=== PATIENT | female | born 1990 | race Caucasian/White ===

== ENCOUNTER 2021-09-14 10:04 | Outpatient (CLI) | payer OTHER, SELFPAY ==
--- NOTE | 2021-09-14 10:15 | CRLHL7_ITS ---
For Patients: As a result of the Cures Act, medical imaging exams and procedure reports are released immediately into your electronic medical record. You may view this report before your referring provider. If you have questions, please contact your health care provider. RIGHT BREAST ULTRASOUND, 09/14/2021 INDICATION: Callback from screening mammogram for RIGHT retroareolar focal asymmetry. TECHNIQUE: Targeted RIGHT breast ultrasound. COMPARISON: Mammograms dating back to 2018 and MRI 09/09/2019. FINDINGS: The retroareolar and 6 o`clock RIGHT breast were evaluated with ultrasound. Scanning was performed by both the technologist and myself. No suspicious abnormality is identified. Normal breast tissue is identified. IMPRESSION: Negative targeted RIGHT breast ultrasound. RECOMMENDATION: Resuming annual screening mammograms and MRIs as clinically indicated in this high-risk patient. BI-RADS Category 1: Negative A lay language report of this examination will be provided to the patient. Dictated by: Leslie Davila MD @09/14/2021 11:17:57 AM jj/Dictated by: Leslie Davila MD @ 09/14/2021 11:18:00 AM (Electronically Signed)
== END 2021-09-14 10:05 | disposition home or self-care (01) ==
LOC: MAMMO 10:05
PROVIDERS: PCP Family Medicine; Visit Provider Family Medicine
DX: R92.8 Other abnormal and inconclusive findings on diagnostic imaging of breast (principal); Z15.01 Genetic susceptibility to malignant neoplasm of breast
CPT/HCPCS: 76642

== ENCOUNTER 2022-02-01 14:04 | Outpatient (CLI) | payer OTHER, SELFPAY ==
--- NOTE | 2022-02-01 14:30 | CRLHL7_ITS ---
For Patients: As a result of the Century Cures Act, medical imaging exams and procedure reports are released immediately into your electronic medical record. You may view this report before your referring provider. If you have questions, please contact your health care provider. BILATERAL BREAST MRI WITHOUT AND WITH GADOLINIUM 02/01/2022 CLINICAL HISTORY: 29-year-old woman with family history of breast cancer in her mother at age 62 and sister age 34. 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 No current breast concerns. INDICATION FOR BREAST MRI: Screening breast MRI in this high-risk woman. COMPARISON STUDIES: Mammogram 03/28/2021, 09/05/2021. Ultrasound 03/28/2021. MRI 09/09/2019. CONTRAST: 20 cc Dotarem. TECHNIQUE: The patient was positioned prone using a breast coil. Multiple imaging sequences were obtained using 1-1.5 mm thick slices with no gap. The image sequences include T2-weighted STIR in the axial plane, T1-weighted nonfat-saturated gradient echo in the axial plane, pre- and post-contrast T1-weighted FLASH 3D with fat suppression in the axial plane, and T1-weighted FLASH high-resolution 3D with fat suppression in the sagittal plane. Image post-processing was performed on a [employer] workstation. Complex 3D rendering including maximum intensity projections (MIPS) and volumetric renderings were obtained to optimize visualization of the extent of pathology and relationship to the nipple, skin, and chest wall. This aids in determining feasibility of breast conservation surgery. Subtraction, multiplanar reconstruction, mean curve determination, and angiogenesis mapping were also performed. The study was technically adequate. FINDINGS: Amount of Fibroglandular Tissue: Scattered fibroglandular tissue. Breast Background Enhancement: Minimal. RIGHT Breast: Segmental nodular enhancement lateral RIGHT breast central depth measuring approximately 3.5 cm in AP dimension. LEFT Breast: No suspicious enhancement for malignancy LEFT breast. Lymph Nodes: Axillary lymph nodes are normal in size and morphology. IMPRESSIONS AND RECOMMENDATIONS: Segmental nodular enhancement lateral RIGHT breast central depth. MRI-guided biopsy is recommended. BI-RADS: BI-RADS Category 4: Suspicious Michelle España M.D. Body/Breast Radiologist [email or web address] Transcribed: 11:19 a.mEnrique DW/Dictated by: Michelle España MD @ 02/04/2022 11:08:00 AM (Electronically Signed)
== END 2022-02-01 14:05 | disposition home or self-care (01) ==
PROVIDERS: PCP Family Medicine; Visit Provider Family Medicine
DX: Z15.01 Genetic susceptibility to malignant neoplasm of breast (principal); D24.2 Benign neoplasm of left breast; Z15.09 Genetic susceptibility to other malignant neoplasm
CPT/HCPCS: 77049; A9575

== ENCOUNTER 2022-07-11 13:52 | Outpatient (CLI) | payer OTHER, SELFPAY ==
--- NOTE | 2022-07-11 14:00 | CRLHL7_ITS ---
For Patients: As a result of the Century Cures Act, medical imaging exams and procedure reports are released immediately into your electronic medical record. You may view this report before your referring provider. If you have questions, please contact your health care provider. BILATERAL SCREENING MAMMOGRAM WITH COMPUTER-AIDED DETECTION AND TOMOSYNTHESIS INDICATION: 32-year-old asymptomatic female. Screening evaluation. TECHNIQUE: CC and MLO views were obtained. This digital study was evaluated is computer-aided detection. Digital breast tomosynthesis utilized for interpretation. COMPARISON: September 10, 2021, December 31, 2019. FINDINGS: Breast composition: There are scattered areas of fibroglandular density Two biopsy clips are identified on the LEFT, unchanged. RIGHT retroareolar density unchanged. This was evaluated with ultrasound September 14, 2021. No change. IMPRESSION: Stable mammograms. Nothing for malignancy. Annual mammography recommended. BI-RADS Category 2: Benign A lay language report of this examination will be provided to the patient. Dictated by: Gurinder Carpenter MD @07/12/2022 8:39:07 AM/ghanshyam AKUA/Dictated by: Gurinder Carpenter MD @ 07/12/2022 8:39:00 AM (Electronically Signed)
== END 2022-07-11 13:53 | disposition home or self-care (01) ==
PROVIDERS: PCP Family Medicine; Visit Provider Surgery
DX: Z12.31 Encounter for screening mammogram for malignant neoplasm of breast (principal)
CPT/HCPCS: 77063; 77067

== ENCOUNTER 2023-02-13 12:49 | Outpatient (CLI) | payer OTHER, SELFPAY ==
--- NOTE | 2023-02-13 13:00 | CRLHL7_ITS ---
For Patients: As a result of the Century Cures Act, medical imaging exams and procedure reports are released immediately into your electronic medical record. You may view this report before your referring provider. If you have questions, please contact your health care provider. BILATERAL BREAST MRI WITHOUT AND WITH GADOLINIUM, 02/13/2023 CLINICAL HISTORY: Personal history of BRCA 1 gene mutation, positive. Strong family history of breast cancer. INDICATION FOR BREAST MRI: Screening breast MRI in this high-risk woman. COMPARISON STUDIES: BILATERAL mammogram 07/11/2022. Breast MRI 02/01/2022. CONTRAST: 20 cc Dotarem. TECHNIQUE: The patient was positioned prone using a breast coil. Multiple imaging sequences were obtained using 1-1.5 mm thick slices with no gap. The image sequences include T2-weighted STIR in the axial plane, T1-weighted nonfat-saturated gradient echo in the axial plane, pre- and post-contrast T1-weighted FLASH 3D with fat suppression in the axial plane, and T1-weighted FLASH high-resolution 3D with fat suppression in the sagittal plane. Image post-processing was performed on a [employer] workstation. Complex 3D rendering including maximum intensity projections (MIPS) and volumetric renderings were obtained to optimize visualization of the extent of pathology and relationship to the nipple, skin, and chest wall. This aids in determining feasibility of breast conservation surgery. Subtraction, multiplanar reconstruction, mean curve determination, and angiogenesis mapping were also performed. The study was technically adequate. FINDINGS: Amount of Fibroglandular Tissue: Scattered fibroglandular tissue. Breast Background Enhancement: Moderate. RIGHT Breast: There is a marker clip in the lateral RIGHT breast from prior biopsy with a benign result. No suspicious mass or non-mass enhancement. LEFT Breast: Two marker clips are identified in the LEFT breast from past biopsies with a benign result. No suspicious mass or non-mass enhancement. Lymph Nodes: No enlarged or morphologically abnormal lymph nodes. IMPRESSIONS AND RECOMMENDATIONS: Negative for signs of malignancy. Follow-up with annual screening mammography. If continuing with breast MRI, this is best offset from the mammogram by six months. BI-RADS Category 2: Benign Namita Montoya M.D. Body/Breast Radiologist [email or web address] PRAVIN/alcon rondon/Dictated by: Namita Montoya MD @ 02/17/2023 5:20:00 PM (Electronically Signed)
== END 2023-02-13 12:50 | disposition home or self-care (01) ==
LOC: MRI 12:49
PROVIDERS: PCP Family Medicine; Visit Provider Surgery
DX: Z12.39 Encounter for other screening for malignant neoplasm of breast (principal); Z15.01 Genetic susceptibility to malignant neoplasm of breast; Z15.02 Genetic susceptibility to malignant neoplasm of ovary; Z91.89 Other specified personal risk factors, not elsewhere classified; Z80.3 Family history of malignant neoplasm of breast
CPT/HCPCS: 77049; A9575

== ENCOUNTER 2023-09-28 02:03 | Emergency (ER) | payer BC, SELFPAY ==
--- NOTE | 2023-09-28 | CT_ITS ---
Patient: KEVIN GLEN WHITE Facility:?[facility] Patient ID:?[id number] Site Patient ID:?[id number]. Site :?[id number] Study:?CT-Abdomen/Pelvis W/ISOVUE 370 66CC-09/28/2023 3:37:10 AM Ordering Physician:CAROLINA Final Report: Indication: Abdominal pain Technique: CT through the abdomen and pelvis following 66 mL Isovue 370 IV contrast Comparison: None Findings: Lower chest: No acute abnormality appreciated. Hepatobiliary: No significant parenchymal abnormality is appreciated. Cholecystectomy. Spleen: Unremarkable. Pancreas: No acute abnormality appreciated. Adrenal glands: No acute abnormality appreciated. Kidneys: Contrast excretion into collecting system precludes reliable assessment nonobstructing calculi. No acute parenchymal abnormality appreciated. No hydronephrosis. Bowel: No obstruction. Mild wall thickening and adjacent hyperemia along the hepatic flexure and proximal transverse colon. The appendix is visualized and appears unremarkable. Vascular: No acute abnormality appreciated. Lymph nodes: No gross lymphadenopathy. Peritoneum: No free air. No free fluid. : No acute abnormality appreciated. Soft tissues: No acute abnormality appreciated. Bones: No acute fracture. No lytic or blastic lesion. Impression: Question mild colitis slowly hepatic flexure and proximal transverse colon, no other acute appreciated for patient`s reported symptoms. Please note that all CT scans at this facility use dose modulation, iterative reconstruction, and/or weight-based dosing when appropriate to reduce radiation dose to as low as reasonably achievable. Dictated by Aung Meza MD @ 09/28/2023 3:44:54 AM Signed by:?Aung Meza MD @09/28/2023 3:44:54 AM (Electronic Signature)
[2023-09-28 02:20] VITALS: BP 90/46; PULSE 114; RESP 20; TEMP 36.5; O2SAT 98; BMI 26.6
[2023-09-28] MEDS: ONDANSETRON 2 MG/ML inj 4 MG IVP (02:40)
[2023-09-28] MEDS: HYDROmorphone 0.5 mg/0.5 ml inj IVP (02:40)
[2023-09-28] MEDS: KETOROLAC 30 MG/ML inj IVP (02:40)
--- NOTE | 2023-09-28 05:34 | ED_ITS ---
HPI - Abdominal Pain General Chief Complaint: Abdominal Pain Stated Complaint: Right side abdominal pain, diarrhea/vomiting History of Present Illness HPI narrative: Patient is a 33-year-old woman who presents with severe in a 10 abdominal pain in the right upper quadrant of 4 hours duration. She has had diarrhea as well as vomiting but no blood in her vomit or diarrhea. She has had a previous cholecystectomy. She has had no other significant symptoms no preceding symptoms and states the pain is severe. She has had no dysuria fevers chills night sweats cough for shortness of breath. Related Data Home Medications ?Medication ?Instructions ?Recorded ?Confirmed No Known Home Medications 09/28/23 09/28/23 Allergies Allergy/AdvReac Type Severity Reaction Status Date / Time oxycodone Allergy nausea & Verified 09/28/23 04:51 vomiting No Known Allergies AdvReac Unknown Verified 09/28/23 04:51 Review of Systems Status of ROS Reports: 10 or more systems reviewed and unremarkable except as noted in History and below [facility] Medical History Nausea and vomiting ?R11.2 - Nausea with vomiting, unspecified (ICD-10) Epigastric pain ?R10.13 - Epigastric pain (ICD-10) Encounter for sterilization ?Z30.2 - Encounter for sterilization (ICD-10) History of cholelithiasis ?Z87.19 - Personal history of other diseases of the digestive system (ICD-10) ASCUS with positive high risk HPV BRCA1-associated protein-1 tumor predisposition syndrome ?Z15.01 - Genetic susceptibility to malignant neoplasm of breast (ICD-10) ?Z15.02 - Genetic susceptibility to malignant neoplasm of ovary (ICD-10) ?Z15.09 - Genetic susceptibility to other malignant neoplasm (ICD-10) Surgical History History of breast biopsy (09/16/19) ?Z98.890 - Other specified postprocedural states (ICD-10) History of (06/03/18) ?Z98.891 - History of uterine scar from previous surgery (ICD-10) H/O: (11/29/16) ?Z98.891 - History of uterine scar from previous surgery (ICD-10) S/P laparoscopic cholecystectomy (09/01/18) ?Z90.49 - Acquired absence of other specified parts of digestive tract (ICD- 10) H/O bilateral salpingectomy ?Z90.79 - Acquired absence of other genital organ(s) (ICD-10) S/P (12/12/20) ?Z98.891 - History of uterine scar from previous surgery (ICD-10) Family History Aunt Breast cancer Sister Breast cancer Paternal Grandfather Colon cancer Daughter Cystic fibrosis Daughter Cystic fibrosis Social History Narrative: Cis-gender, heterosexual woman Relationship status: . 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 She drinks alcohol occasionally. 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 Smoking Status: Never smoker Non-prescribed substance use: denies use Exam Narrative: Exam Narrative: EXAM GENERAL: Patient appears very uncomfortable E rocking back and forth. EYES: No scleral icterus. LYMPH: No supraclavicular or cervical lymphadenopathy. SKIN: Visible skin seen during exam normal or with benign process only. EXT: No dependent lower extremity pedal edema. HEART: Regular rate and rhythm with no murmurs, rubs, or gallops. LUNGS: Clear to auscultation bilaterally with no crackles or wheezes. ABD: Soft, non tender, non distended. PSYCH: Good eye contact, speech is not pressured. Const: Vital Signs, click to edit/add: Vital Signs - 24 hr 09/28/23 02:20 Temperature 97.7 F Pulse Rate [Pulse Oximeter] 114 H Respiratory Rate 20 Blood Pressure [Ri ght Upper Arm] 90/46 L Pulse Oximetry 98 Course Vital Signs Vital signs: Initial Vital Signs Temperature 97.7 F 09/28/23 02:20 Temperature Source Temporal Artery Scan 09/28/23 02:20 Pulse Rate 114 H 09/28/23 02:20 Pulse Rhythm Regular 09/28/23 02:20 Respiratory Rate 20 09/28/23 02:20 Blood Pressure 90/46 L 09/28/23 02:20 Blood Pressure Mean 60 L 09/28/23 02:20 Blood Pressure Position Sitting 09/28/23 02:20 Pulse Oximetry 98 09/28/23 02:20 Vital Signs Temperature 97.7 F 09/28/23 02:20 Pulse Rate 114 H 09/28/23 02:20 Respiratory Rate 20 09/28/23 02:20 Blood Pressure 90/46 L 09/28/23 02:20 Pulse Oximetry 98 09/28/23 02:20 Temperature 97.7 F 09/28/23 02:20 Pulse Rate 114 H 09/28/23 02:20 Respiratory Rate 20 09/28/23 02:20 Blood Pressure 90/46 L 09/28/23 02:20 Pulse Oximetry 98 09/28/23 02:20 MDM - Abdominal Pain MDM Narrative Medical decision making narrative: Patient is a 33-year-old woman who presents with severe abdominal pain. CT of the abdomen pelvis shows mild colitis. Her symptoms resolved with normal saline Toradol Dilaudid and Zofran. Labs are reassuring. At this time she feels 100% better and is discharged home to rotate Tylenol Motrin plenty of rest plenty fluids I did prescribe Zofran a p.r.n. basis. Discharge Plan Discharge Clinical Impression: Colitis Patient Disposition: Home, Self-Care Condition: Stable Instructions: Colitis (ED) Activity Level: No Restrictions Discharge Diet: Regular Prescriptions: No Action No Known Home Medications Follow Up/Referrals: Bridgette Hastings DO [Primary Care Provider] - Stand Alone Forms: [employer] Info Instructions
[2023-09-28 05:44] LABS: Hematocrit 41.7 % (33.0-51.0); Hemoglobin* 13.7 gm/dL (12.0-16.0); Mean Corpuscular HGB Conc 33 gm/dL (32-36); Mean Corpuscular Hemoglobin 30 pg (26-34); Mean Corpuscular Volume 87 fL (80-100); Platelet Count* 230 K/uL (140-440); Red Blood Count 4.81 m/uL (4.00-5.20); White Blood Count* 9.29 K/uL (4.50-11.00)
[2023-09-28 05:45] LABS: Basophils Percent Auto 0.1 % (0.0-3.0); Eosinophils Percent Auto 0.1 % (0.0-7.0); Immature Granulocytes Pct Auto 0.9 %; Monocytes Percent Auto 7.2 % (0.0-11.0); Neutrophils Percent Auto 87.7 % (42.0-72.0); Potassium* 3.6 mmol/L (3.6-5.1); RDW Coefficient of Variation % 12.7 % (11.5-15.5); Slide Review Reflex No; Sodium* 139 mmol/L (135-149)
[2023-09-28 05:46] LABS: Alanine Aminotransferase* 16 U/L (4-35); Albumin* 5.1 g/dL (3.3-5.0); Alkaline Phosphatase* 71 U/L (40-150); Anion Gap 13 mEq/L (7-15); Aspartate Amino Transferase* 26 U/L (12-35); Bilirubin Total* 0.8 mg/dL (0.1-1.5); Blood Urea Nitrogen* 13 mg/dL (5-24); Calcium* 9.5 mg/dL (8.4-10.6); Carbon Dioxide* 21 mmol/L (20-32); Chloride* 105 mmol/L (96-114); Creatinine* 0.7 mg/dL (0.5-1.5); Est. Creatinine Clearance* 96.86; Estimated Glomerular Filt Rate 116 ml/min; Glucose* 137 mg/dL (60-115)
[2023-09-28 05:47] LABS: Amylase* 78 U/L (18-89)
== END 2023-09-28 05:00 | disposition home or self-care (01) ==
PROVIDERS: Emergency Provider Internal Medicine; PCP Family Medicine
DX: K52.9 Noninfective gastroenteritis and colitis, unspecified (principal)
CPT/HCPCS: 36415; 74177; 80053; 81003; 82150; 85025; 96374; 96375; 99283; 99284; 99285; J1170; J1885; J2405; Q9967

== ENCOUNTER 2024-01-30 15:22 | Outpatient (CLI) | payer BC, SELFPAY ==
--- NOTE | 2024-01-30 15:30 | CRLHL7_ITS ---
For Patients: As a result of the Century Cures Act, medical imaging exams and procedure reports are released immediately into your electronic medical record. You may view this report before your referring provider. If you have questions, please contact your health care provider. BILATERAL BREAST MRI WITHOUT AND WITH GADOLINIUM CLINICAL HISTORY: BRCA1 gene positive. INDICATION FOR BREAST MRI: Screening in this woman with increased risk for breast cancer. COMPARISON STUDIES: Breast MRI 02/13/2023, 02/01/2022. CONTRAST: 14 mL Dotarem. TECHNIQUE: The patient was positioned prone using a breast coil. Multiple imaging sequences were obtained using 1-1.5 mm thick slices with no gap. The image sequences include T2-weighted STIR in the axial plane, T1-weighted nonfat-saturated gradient echo in the axial plane, pre- and post-contrast T1-weighted FLASH 3D with fat suppression in the axial plane, and T1-weighted FLASH high resolution 3D with fat suppression in the sagittal plane. Image post-processing was performed on a [employer] workstation. Complex 3D rendering including maximum intensity projections (MIPS) and volumetric renderings were obtained to optimize visualization of the extent of pathology and relationship to the nipple, skin, and chest wall. This aids in determining feasibility of breast conservation surgery. Subtraction, multiplanar reconstruction, mean curve determination, and angiogenesis mapping were also performed. The study was technically adequate. FINDINGS: Amount of Fibroglandular Tissue: Scattered fibroglandular tissue. Breast Background Enhancement: Moderate background enhancement. Both breasts negative for suspicious mass or non-mass enhancement. Lymph Nodes: No suspicious lymph node. IMPRESSIONS AND RECOMMENDATIONS: Negative for signs of malignancy. Follow-up with annual screening mammography offset by 6 months with breast MRI. BI-RADS Category 2: Benign Dictated by Namita Montoya MD @ 02/03/2024 2:04:05 PM /sp SP/Dictated by: Namita Montoya MD @ 02/03/2024 2:05:00 PM (Electronically Signed)
== END 2024-01-30 15:23 | disposition home or self-care (01) ==
LOC: MRI 15:23
PROVIDERS: PCP Family Medicine; Visit Provider Surgery
DX: Z12.39 Encounter for other screening for malignant neoplasm of breast (principal); Z91.89 Other specified personal risk factors, not elsewhere classified; Z15.01 Genetic susceptibility to malignant neoplasm of breast; Z15.02 Genetic susceptibility to malignant neoplasm of ovary; Z15.09 Genetic susceptibility to other malignant neoplasm
CPT/HCPCS: 77049; A9575